=== PATIENT | male | born 1955 | race Caucasian/White ===

== ENCOUNTER → 2019-01-28 | Outpatient (CLI) | payer BC, OTHER ==
[~2019-01-28] VITALS: Ht 175.3 cm; Wt 99.8 kg
[~2019-01-28] MED LIST: AMLODIPINE BESY10 MG PO; AMLODIPINE BESYL5 MG PO; ASPIR 8181 MG PO; ASPIRIN325 PO; ATIVAN0.5 MG PO; ATORVASTATIN CA40 MG PO; AVAPRO 150 MG150 MG PO; CLONIDINE PO; COREG6.25 MG PO; CRESTOR10 MG PO; FISH OIL 1,0001 EAC5 PO; FLOMAX0.4 MG PO; LISINOPRIL20 MG PO; LOMOTIL TABLET1 EACH PO; LOPRESSOR25 PO; MECLIZINE 25 MG25 M1 PO; METFORMIN HCL500 MG PO; OMEPRAZOLE; OMEPRAZOLE 20 M20 M1 PO; PLAVIX 75 MG TA75 M1 PO; VOTRIENT200 MG PO; ZOCOR 20 MG TAB20 M1 PO
[2019-01-28 08:04] VITALS: BP 133/84
== END | disposition home or self-care (01) ==
LOC: SPEC 07:12
DX: I65.23 Occlusion and stenosis of bilateral carotid arteries (principal); I70.1 Atherosclerosis of renal artery; I73.89 Other specified peripheral vascular diseases; I10 Essential (primary) hypertension; J44.9 Chronic obstructive pulmonary disease, unspecified; E11.9 Type 2 diabetes mellitus without complications; K21.9 Gastro-esophageal reflux disease without esophagitis; E78.5 Hyperlipidemia, unspecified; E66.09 Other obesity due to excess calories; Z86.73 Personal history of transient ischemic attack (TIA), and cerebral infarction without residual deficits; Z87.891 Personal history of nicotine dependence; Z98.890 Other specified postprocedural states; Z79.899 Other long term (current) drug therapy; Z88.6 Allergy status to analgesic agent; Z79.82 Long term (current) use of aspirin

== ENCOUNTER 2019-03-31 20:32 | Inpatient (IN) | payer OTHER ==
[~2019-03-31] VITALS: Ht 177.8 cm; Wt 101.2 kg
[2019-03-31 20:33] VITALS: BP 166/94
[2019-03-31 21:04] LABS: BASOPHILS 1.2 % (0.0-2.0); EOSINOPHILS 0.7 % (0.0-3.0); HEMATOCRIT 38.9 % (42.0-52.0); HEMOGLOBIN 13.4 gm/dL (14.0-18.0); LYMPHOCYTES 26.8 % (24.0-44.0); MCH 34.1 pg (26.0-34.0); MCHC 34.4 g/dL (28.0-37.0); MCV 99.1 fL (80.0-100.0); MONOCYTES 5.7 % (1.0-8.0); PLATELET COUNT 158 thou/uL (150-400); POLYS 65.6 % (36.0-66.0); RBC 3.93 mil/uL (4.50-6.00); RDW 14.2 % (10.5-14.5); WBC 6.1 thou/uL (4.0-11.0)
[2019-03-31 21:17] LABS: ANION GAP 11 mmol/L (7-16); BUN 17 mg/dL (7-18); CALCIUM 8.3 mg/dL (8.5-10.1); CHLORIDE 103 mmol/L (98-107); CO2 25 mmol/L (21-32); CREATININE 1.5 mg/dL (0.7-1.3); GLUCOSE 150 mg/dL (74-106); POTASSIUM 3.8 mmol/L (3.5-5.1); SODIUM 139 mmol/L (136-145)
[2019-03-31 21:21] LABS: APTT 25.7 Seconds (24.5-32.8)
[2019-03-31 21:26] LABS: ALBUMIN 2.8 g/dL (3.4-5.0); SGOT 15 U/L (15-37); SGPT 20 U/L (30-65); TOTAL BILIRUBIN 0.2 mg/dL (<0.1-1.0); TOTAL PROTEIN 6.6 g/dL (6.4-8.2); TROPONIN-I <0.06 ng/mL (<0.06)
[2019-03-31] MEDS ORDERED: VOTRIENT200 MG PO (21:38)
[2019-03-31 22:02] LABS: URINE BILIRUBIN NEGATIVE (Negative); URINE BLOOD NEGATIVE (Negative); URINE CLARITY CLEAR; URINE COLOR YELLOW; URINE GLUCOSE-RANDOM* NEGATIVE (Negative); URINE KETONES NEGATIVE (Negative); URINE LEUKOCYTES-REFLEX NEGATIVE (Negative); URINE NITRITE-REFLEX NEGATIVE (Negative); URINE PROTEIN (DIPSTICK) TRACE (Negative); URINE SPECIFIC GRAVITY 1.015 (1.005-1.035)
[2019-04-01] VITALS (7 sets, daily range): BP systolic 121–162; BP diastolic 63–101
--- NOTE | 2019-04-01 03:36 | NUR ---
RECEIVED REPORT FROM ER NURSE. PT ARRIVED TO ROOM 359 AROUND 0045. ADMISSION HX AND ASSESSMENT COMPLETED CHARTED. DENIES ANY PAIN. FLAT AFFECT. PT SEEMS DISCOURAGED ABOUT HIS CANCER PROGNOSIS. NO NEURO DEFICITS NOTED. DENIED ANY RT ARM WEAKNESS UPON ADMISSION. RESTING COMFORTABLY IN BED AT THIS TIME. PROGRESSING TOWARD POC GOALS. WILL CONTINUE TO MONITOR FURTHER.
--- NOTE | 2019-04-01 07:51 | EKG ---
[address] [place] [address] ELECTROCARDIOGRAM REPORT Name: AURELIO FRENCH Room #: 359-P ADM IN M.R.#: [id number] ������������������ Admission: 03/31/19 ������������������ Attend Phys: Loretta Torres MD Discharge: ������������������ Date of : 59 Report #: [id number] ����������������������������������������������������������������� [id number] THIS REPORT FOR: //name// 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 : 1955 Requested By: Alena Roberts Order Number: [id number] MD: Raul Gambino Measurements Intervals [place] Rate: 71 P: 44 [place]: 187 QRS: -11 QRSD: 103 T: 111 QT: 365 QTc: 397 Interpretive Statements Sinus rhythm Incomplete RBBB RSR' in V1 or V2, right VCD o Nonspecific T abnormalities, lateral leads Compared to ECG 05/08/2012 09:42:25 nonspecific T wave abnormality is now present Electronically Signed On 04-01-2019 7:51:45 CDT by Raul Gambino [email or web address] ��������������������������������������������� <ELECTRONICALLY SIGNED> ���������������������������������������� By: Raul Gambino MD, FACC ��������������������������������������������� 04/01/19 0751 [id number] Raul Gambino MD, [facility] /EPI
--- NOTE | 2019-04-01 12:11 | NUR ---
TOWARDS POC PT A/O X4,VSS, AFEBRILE, DENIES PAIN. NO NV, NO NAUSEA. PT ABLE TO WALK INDEPENTLY ON THE ROOM. PT HAD MRI. AWAITING RESULTS. PT IS PROBABLE DC TODAY. WILL CONTINUE TO MONITOR.
[2019-04-01] MEDS ORDERED: PLAVIX 75 MG TA75 M1 PO (13:24)
[2019-04-01] MEDS ORDERED: VOTRIENT200 MG PO (13:24)
[2019-04-01 13:29] LABS: CHOLESTEROL 124 mg/dL (<200); HDL CHOLESTEROL 33 mg/dL (>40); LDL CHOLESTEROL 50 mg/dL (<100); TC:HDL 3.8 Ratio (Not establshd); TRIGLYCERIDE 207 mg/dL (<150); VLDL 41 mg/dL (<40)
[2019-04-02 03:50] VITALS: BP 138/94
--- NOTE | 2019-04-02 06:15 | NUR ---
PATIENT IS PROGRESSING IN HIS CARE PLAN. VITAL SIGNS STABLE WITH PATIENT HAVING NO COMPLAINTS OF NAUSEA. PATIENT DID COMPLAIN OF HEADACHE PAIN WHICH WAS EFFECTIVELY TREATED WITH PRN MEDICATIONS AND NON PHARMACOLOGICAL INTERVENTION. FULLY ORIENTED, PATIENT HAS BEEN ABLE TO CALL APPROPRIATELY FOR NEEDS AND PARTICIPATED IN CARE PLAN. UP AD TENISHA THROUGHOUT SHIFT WITHOUT INCIDENT, PATIENT APPEARS STRONG AND BALANCED WHEN WALKING. POSSIBLE PROCEDURE TODAY WITH PATIENT ANXIOUS FOR POTENTIAL DISCHARGE. CONTINUE PLAN OF CARE.
[2019-04-02 07:34] VITALS: BP 154/99
--- NOTE | 2019-04-02 09:00 | 2DMMODE ---
[facility] [place] [address] 2 D/M-MODE ECHOCARDIOGRAM Name: GILLIANAURELIO JANELLE Room #: 359-P ADM IN M.R.#: [id number] ������������� Admission: 03/31/19 ������������� Attend Phys: Loretta Torres MD Discharge: ��� ������������� ��� Date of : 59 Date of Service: 04/02/19 0900 �� Report #: [id number] �������� ��������������������������������������������[id number] THIS REPORT FOR: //name// APPROVED REPORT Study performed: 04/02/2019 08:17:30 EXAM: Comprehensive 2D, Doppler, and color-flow Echocardiogram Patient Location: Echo lab Room #: [facility] Status: routine BSA: 2.19 HR: 67 bpm BP: 154/99 mmHg Rhythm: NSR Other Information Study Quality: Good Indications CVA/TIA Diabetes Hypertension/HDD Echo Enhancing Agent Indication: Rule out Shunt Agent(s) / Amount(s) Used: Agitated Saline 7 cc 2D Dimensions RVDd: 34.02 mm IVSd: 13.23 (7-11mm) LVOT Diam: 21.96 (18-24mm) LVDd: 45.58 mm PWd: 13.95 (7-11mm) Ascending Ao: 41.28 (22-36mm) LVDs: 28.74 (25-40mm) Aortic Root: 39.86 mm IVC: 10.00 mm Volumes Left Atrial Volume (Systole) Single Plane 4CH: 39.06 mL Single Plane 2CH: 41.07 mL LA ESV Index: 20.00 mL/m2 Aortic Valve AoV Peak Jono.: 1.17 m/s AO Peak Gr.: 5.52 mmHg LVOT Max P.92 mmHg LVOT Max V: 0.99 m/s [facility] [address] [place] [address] 2 D/M-MODE ECHOCARDIOGRAM Name: GILLIANAURELIO JANELLE Room #: 359-P [facility] IN ..#: [id number] ������������� Admission: 03/31/19 ������������� Attend Phys: Loretta Torres MD Discharge: ��� ������������� ��� Date of : 59 Date of Service: 04/02/19 0900 �� Report #: [id number] �������� ��������������������������������������������[id number] OMAR Vmax: 3.19 cm2 Mitral Valve E/A Ratio: 1.1 MV Decel. Time: 223.49 ms MV E Max Jono.: 0.76 m/s MV A Jono.: 0.71 m/s MV PHT: 64.81 ms IVRT: 152.25 ms Pulmonary Valve PV Peak Jono.: 0.92 m/s PV Peak Gr.: 3.40 mmHg Pulmonary Vein P Vein S: 0.50 m/s P Vein A: 0.24 m/s P Vein D: 0.36 m/s P Vein A Dur.: 96.9 msec P Vein S/D Ratio: 1.39 Tricuspid Valve TR Peak Jono.: 2.13 m/s TR Peak Gr.: 18.13 mmHg PA Pressure: 23.00 mmHg Left Ventricle The left ventricle is normal size. There is normal LV segmental wall motion. Mild concentric left ventricular hypertrophy. The left ventricular systolic function is normal. The left ventricular ejection fraction is within the normal range. LVEF is 60-65%. Moderate diastolic dysfunction is present (pseudonormal filling). Right Ventricle The right ventricle is normal size. The right ventricular systolic function is normal. Atria The left atrium size is normal. No shunting by contrast bubble injection. The right atrium size is normal. Aortic Valve The aortic valve is mildly sclerotic No aortic regurgitation is present. There is no aortic valvular stenosis. Mitral Valve The mitral valve is normal in structure. No mitral regurgitation. No evidence of mitral valve stenosis. [facility] [address] [address] 2 D/M-MODE ECHOCARDIOGRAM Name: AURELIO FRENCH Room #: 359-P [facility] IN [facility]#: [id number] ������������� Admission: 03/31/19 ������������� Attend Phys: Loretta Torres MD Discharge: ��� ������������� ��� Date of : 59 Date of Service: 04/02/19 0900 �� Report #: [id number] �������� ��������������������������������������������[id number] Tricuspid Valve The tricuspid valve is normal in structure. There is trace tricuspid regurgitation. Pulmonary artery pressure of 25 mmHg There is no pulmonary hypertension. Pulmonic Valve The pulmonary valve is normal in structure. Mild pulmonic regurgitation. Great Vessels The aortic root is normal in size. IVC is normal in size and collapses >50% with inspiration. Pericardium There is no pericardial effusion. <Conclusion> The left ventricular systolic function is normal. There is normal LV segmental wall motion. LVEF is 60-65%. Moderate diastolic dysfunction No shunting by contrast bubble injection. The aortic valve is mildly sclerotic. No aortic regurgitation or stenosis. The mitral valve is normal in structure. No mitral regurgitation. There is trace tricuspid regurgitation. Pulmonary artery pressure of 25 mmHg There is no pericardial effusion. ��������������������������������������������� <ELECTRONICALLY SIGNED> ���������������������������������������� By: Raul Gambino MD, FACC ��������������������������������������������� 04/02/19899 9 9 Raul Gambino MD, FACC /INF
--- NOTE | 2019-04-02 10:02 | NUR ---
ASSESSMENT: CM REVIEWED CHART AND MET WITH PT AT THE BEDSIDE. PT REPORTS HE LIVES IN A HOME BY HIMSELF. PT REPORTS HE HAS TWO STEPS WITH HANDRAILS TO ENTER AND NO STEPS HE HAS TO USE ONCE INSIDE. PT REPORTS THAT HE IS INDEPENDENT WITH ADLS AND AMBULATION AND DOES NOT HAVE ANY DME OR THE NEED FOR IT. PT REPORTS THAT HE HAS NOT HAD HH IN THE PAST OR BEEN TO A SNF. CM DISCUSSED ROLE. PT REPORTS HE DOES NOT ANTICIPATE HAVING ANY NEEDS FROM CM AND REPORTS THAT HE DOES NOT FEEL HE NEEDS HH AND DOES NOT WANT IT. CARDIOLOGY HAS BEEN CONSULTED. PT STATING HE IS WANTING TO GO HOME TODAY IF POSSIBLE. CM WILL CONTINUE TO FOLLOW TO ASSIST NEEDED.
[2019-04-02 11:07] LABS: GLYCOHEMOGLOBIN (HGB A1C) 6.1 % (4.8-5.6)
[2019-04-02] MEDS ORDERED: PLAVIX 75 MG TA75 M1 PO (11:24)
[2019-04-02 12:28] VITALS: BP 154/99
--- NOTE | 2019-04-02 14:02 | NUR ---
PT DISCHARGING TODAY. D/C INSTRUCTIONS AND RX GIVEN. PT VERBALIZED UNDERSTANDING. 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 ALL BELONGINGS SENT WITH PATIENT.
== END 2019-04-02 13:24 | disposition home or self-care (01) | DRG 69 ==
LOC: ER 20:32 → EROBS 23:04 → 3W 23:04 → ENTRNSPT 04-02 12:45 → EDTRNSPTSTS 04-02 12:48 → 3W 04-02 13:24
PROVIDERS: Emergency Medicine; Nurse Practitioner Acute Care; Nurse Practitioner Family; ADMIT Internal Medicine
DX: G45.9 Transient cerebral ischemic attack, unspecified (principal); C34.90 Malignant neoplasm of unspecified part of unspecified bronchus or lung; C64.9 Malignant neoplasm of unspecified kidney, except renal pelvis; N17.9 Acute kidney failure, unspecified; E78.5 Hyperlipidemia, unspecified; I10 Essential (primary) hypertension; J44.9 Chronic obstructive pulmonary disease, unspecified; E11.9 Type 2 diabetes mellitus without complications; K21.9 Gastro-esophageal reflux disease without esophagitis; I25.10 Atherosclerotic heart disease of native coronary artery without angina pectoris; Z86.73 Personal history of transient ischemic attack (TIA), and cerebral infarction without residual deficits; Z79.84 Long term (current) use of oral hypoglycemic drugs; Z79.82 Long term (current) use of aspirin; Z88.5 Allergy status to narcotic agent; Z85.89 Personal history of malignant neoplasm of other organs and systems; Z85.118 Personal history of other malignant neoplasm of bronchus and lung; Z87.891 Personal history of nicotine dependence
CPT/HCPCS: 10879

== ENCOUNTER 2020-10-18 18:35 | Emergency (ER) | payer OTHER ==
[~2020-10-18] VITALS: Ht 175.3 cm; Wt 108.0 kg
[2020-10-18 20:18] LABS: ABSOLUTE NEUTROPHILS 3.9 thou/uL (1.4-8.2); BASOPHILS 0.5 % (0.0-2.0); EOSINOPHILS 0.8 % (0.0-3.0); HEMATOCRIT 35.5 % (42.0-52.0); HEMOGLOBIN 11.5 gm/dL (14.0-18.0); LYMPHOCYTES 20.4 % (24.0-44.0); MCH 29.3 pg (26.0-34.0); MCHC 32.3 g/dL (28.0-37.0); MCV 90.8 fL (80.0-100.0); POLYS 75.3 % (36.0-66.0); RBC 3.91 mil/uL (4.50-6.00); RDW 17.4 % (10.5-14.5); WBC 5.2 thou/uL (4.0-11.0)
[2020-10-18 20:30] LABS: ALBUMIN 2.6 g/dL (3.4-5.0); DIRECT BILIRUBIN 0.6 mg/dL (<0.1-0.2); LIPASE 219 U/L (73-393); SGOT 290 U/L (15-37); SGPT 206 U/L (30-65); TOTAL BILIRUBIN 1.3 mg/dL (0.2-1.0); TOTAL PROTEIN 6.9 g/dL (6.4-8.2); TROPONIN-I <0.06 ng/mL (<0.06)
[2020-10-18 21:20] LABS: CALCIUM 8.3 mg/dL (8.5-10.1); CREATININE 1.7 mg/dL (0.7-1.3)
[2020-10-18 21:21] LABS: URINE BILIRUBIN NEGATIVE (Negative); URINE BLOOD NEGATIVE (Negative); URINE CLARITY CLEAR; URINE COLOR YELLOW; URINE GLUCOSE-RANDOM* NEGATIVE (Negative); URINE KETONES NEGATIVE (Negative); URINE LEUKOCYTES-REFLEX NEGATIVE (Negative); URINE NITRITE-REFLEX NEGATIVE (Negative); URINE PROTEIN (DIPSTICK) 1+ (Negative)
[2020-10-18 21:21] LABS: POTASSIUM 4.2 mmol/L (3.5-5.1)
[2020-10-18] MEDS ORDERED: HYDROCODON-ACE1 EAC7 PO (21:31)
[2020-10-18 21:47] VITALS: BP 141/69
[2020-10-18 21:47] LABS: ANISOCYTOSIS 1+; OVALOCYTES FEW; PLATELET COUNT 88 thou/uL (150-400); PLATELET ESTIMATE DECREASED
[2020-10-18 21:51] LABS: BACTERIA-REFLEX None Seen /HPF (None Seen); CASTS None Seen /LPF (None Seen); CRYSTALS None Seen /LPF (None Seen); MUCUS None Seen strn/LPF (None Seen); SQUAMOUS None Seen /LPF (0-3); URINE RBC None Seen /HPF (0-2); URINE WBC-REFLEX None Seen /HPF (0-5)
--- NOTE | 2020-10-19 07:19 | EKG ---
[address] [place] [address] ELECTROCARDIOGRAM REPORT Name: AURELIO FRENCH [facility] [id number] Admission: 10/18/20 Attend Phys: Discharge: 10/18/20 Date of : 59 Report #: [id number] 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
== END 2020-10-18 21:47 | disposition home or self-care (01) ==
LOC: ER 18:35
PROVIDERS: Nurse Practitioner
DX: C64.9 Malignant neoplasm of unspecified kidney, except renal pelvis (principal); R10.13 Epigastric pain; M25.50 Pain in unspecified joint; I10 Essential (primary) hypertension; J44.9 Chronic obstructive pulmonary disease, unspecified; E78.5 Hyperlipidemia, unspecified; I25.10 Atherosclerotic heart disease of native coronary artery without angina pectoris; K21.9 Gastro-esophageal reflux disease without esophagitis; E11.9 Type 2 diabetes mellitus without complications; Z79.899 Other long term (current) drug therapy; Z87.891 Personal history of nicotine dependence; Z79.01 Long term (current) use of anticoagulants; Z79.82 Long term (current) use of aspirin; Z88.1 Allergy status to other antibiotic agents; Z88.5 Allergy status to narcotic agent; Z88.8 Allergy status to other drugs, medicaments and biological substances; Z91.048 Other nonmedicinal substance allergy status

== ENCOUNTER 2020-10-20 12:44 | Emergency (ER) | payer OTHER ==
[~2020-10-20] VITALS: Ht 175.3 cm; Wt 79.4 kg
[~2020-10-20 12:44] MED LIST changes: +HYDROCODON-ACE1 EAC7 PO
[2020-10-20 17:30] LABS: ABSOLUTE NEUTROPHILS 5.2 thou/uL (1.4-8.2); BASOPHILS 0.6 % (0.0-2.0); EOSINOPHILS 1.8 % (0.0-3.0); HEMATOCRIT 38.4 % (42.0-52.0); HEMOGLOBIN 12.8 gm/dL (14.0-18.0); LYMPHOCYTES 14.8 % (24.0-44.0); MCH 29.4 pg (26.0-34.0); MCHC 33.2 g/dL (28.0-37.0); MCV 88.4 fL (80.0-100.0); MONOCYTES 2.9 % (1.0-8.0); PLATELET COUNT 89 thou/uL (150-400); POLYS 79.9 % (36.0-66.0); RBC 4.34 mil/uL (4.50-6.00); RDW 17.5 % (10.5-14.5); WBC 6.5 thou/uL (4.0-11.0)
[2020-10-20 17:37] LABS: CALCIUM 8.8 mg/dL (8.5-10.1); CREATININE 1.7 mg/dL (0.7-1.3); POTASSIUM 3.9 mmol/L (3.5-5.1)
[2020-10-20 17:44] LABS: ALBUMIN 2.7 g/dL (3.4-5.0); TOTAL BILIRUBIN 2.3 mg/dL (0.2-1.0); TOTAL PROTEIN 7.6 g/dL (6.4-8.2)
[2020-10-20] MEDS ORDERED: PERCOCET 5-3251 EACH PO (18:21)
[2020-10-20 18:44] VITALS: BP 107/63
== END 2020-10-20 18:44 | disposition home or self-care (01) ==
LOC: ER 12:44
PROVIDERS: Emergency Medicine
DX: I73.9 Peripheral vascular disease, unspecified (principal); M79.18 Myalgia, other site; K42.9 Umbilical hernia without obstruction or gangrene; E11.9 Type 2 diabetes mellitus without complications; E78.5 Hyperlipidemia, unspecified; K21.9 Gastro-esophageal reflux disease without esophagitis; J44.9 Chronic obstructive pulmonary disease, unspecified; C64.9 Malignant neoplasm of unspecified kidney, except renal pelvis; I10 Essential (primary) hypertension; K13.79 Other lesions of oral mucosa; Z98.890 Other specified postprocedural states; Z85.118 Personal history of other malignant neoplasm of bronchus and lung; Z86.73 Personal history of transient ischemic attack (TIA), and cerebral infarction without residual deficits; Z79.899 Other long term (current) drug therapy; Z79.82 Long term (current) use of aspirin; Z91.048 Other nonmedicinal substance allergy status; Z88.8 Allergy status to other drugs, medicaments and biological substances; Z88.5 Allergy status to narcotic agent; Z88.4 Allergy status to anesthetic agent; Z87.891 Personal history of nicotine dependence